=== PATIENT | female | born 1960 | race Caucasian/White ===

== ENCOUNTER 2017-05-19 10:00 | Inpatient (IN) | payer BC ==
[2017-05-19 10:31] VITALS: BMI 25.2
--- NOTE | 2017-05-20 11:02 | HP ---
HISTORY OF PRESENT ILLNESS: The patient is a 57-year-old white female who underwent bilateral total knee replacement approximately 15 months ago. She initially did well, but has noticed progressive problems, primarily with her left knee with pain and sensation of instability and hyperextension. She has had no injury. PAST MEDICAL HISTORY: Please see the old chart. The patient has history of thyroid problems, COPD, depression and acid reflux. She was found to have an asymptomatic UTI on preoperative laboratory studies secondary to Escherichia coli and has been treated with Macrobid. CURRENT MEDICATIONS: Include tramadol, Spiriva and Zetia, and Macrobid ALLERGIES: She is allergic to DARVOCET and PENICILLIN. FAMILY HISTORY: Otherwise unremarkable. SOCIAL HISTORY: Otherwise unremarkable. REVIEW OF SYSTEMS: Otherwise unremarkable. PHYSICAL EXAMINATION: GENERAL: Reveals a healthy female. HEENT: Unremarkable. NECK: Supple. CHEST: Clear. HEART: Regular rate and rhythm. ABDOMEN: Soft and nontender. PELVIC: Deferred. RECTAL: Deferred. BREAST: Deferred. EXTREMITIES: Pertinent findings related to her knees. Examination of her left knee reveals no effusion or erythema. There is normal alignment. Surgical wounds are well healed. Range of motion of the left knee is from -5 degrees of hyperextension to 120 degrees. There is pain with extremes of motion. There is no medial or lateral instability. Neurovascular exam is intact. Examination of the right knee reveals no effusion, normal alignment, no point tenderness. Range of motion is 0-115 degrees. No instability. LABORATORY AND X-RAY FINDINGS: X-rays of both knees reveal good alignment of the total knee components without evidence of loosening or interval change. CBC , sedimentation rate and C-reactive protein are normal, without signs of infection. IMPRESSION: Painful left total knee replacement and possible mid-flexion instability. PLAN: Left tibial liner exchange, possible total knee revision. The nature of the surgery, length of recovery, and potential complications such as infection, loss of motion, incomplete relief, neurovascular injury, thromboembolic phenomena, continued instability, possible transfusion, and need for revision or additional surgery have been discussed in detail. VINCE
[2017-05-21] MEDS ORDERED: Ropivacaine 0.2% HCl/PF 20 ML ONE (06:29)
[2017-05-21] MEDS ORDERED: Midazolam HCl 2 mg/2 ml Vial ONE (06:29)
[2017-05-21] MEDS ORDERED: Fentanyl 100 MCG/2 ML VIAL ONE ×6 (06:29→11:05)
[2017-05-21] MEDS ORDERED: Tranexamic Acid 1,000 MG/100 ML BAG ONE ×2 (06:37→10:49)
[2017-05-21] MEDS ORDERED: Levofloxacin 500 mg/D5W 100 ml Premix Bag ONE (06:37)
[2017-05-21] MEDS ORDERED: Promethazine HCl 25 MG/ML VIAL IM PRN (07:21)
[2017-05-21] MEDS ORDERED: traMADol HCl 50 MG TAB PO PRN ×3 (07:21→11:26)
[2017-05-21] MEDS ORDERED: Ondansetron HCl/PF 4 MG/2 ML Vial IVP PRN (07:21)
[2017-05-21] MEDS ORDERED: Ropivacaine HCl/PF 250 ML in Premix Bag 1 BAG NERVE BLCK SCH (07:21)
[2017-05-21] MEDS ORDERED: Zolpidem Tartrate 5 MG TAB PO PRN ×2 (07:21→11:26)
[2017-05-21] MEDS ORDERED: HYDROcodone/Acetaminophen 5/325 mg Tablet PO PRN (07:21)
[2017-05-21] MEDS ORDERED: Fentanyl 100 MCG/2 ML VIAL IV PRN (07:25)
[2017-05-21] MEDS ORDERED: Tranexamic Acid 1,000 MG in Sodium Chloride 0.9% 100 ML IVPB SCH ×2 (09:00→11:26)
--- NOTE | 2017-05-21 10:27 | OP ---
DATE OF PROCEDURE: 05/21/2017 SURGEON: Jas Glaser M.D. LOAN COLLECTOR: Minh Mancuso PA-C. ANESTHESIA: General plus femoral and sciatic nerve blocks. PREOPERATIVE DIAGNOSIS: Painful unstable left total knee replacement. POSTOPERATIVE DIAGNOSIS: Painful unstable left total knee replacement. PROCEDURE: Revision of tibial component, left total knee replacement with tibial liner exchange with exchange of 9 mm CS Triathlon components with 14 mm CS Triathlon tibial liner. OPERATIVE FINDINGS: Examination under anesthesia revealed approximately 5-10 degrees of hyperextensi on. At exploration, there was mild effusion, but no clinical signs of infection, there was good warren llar tracking. There were no signs of malposition of the implants. There were no signs of loosening . After exchanging the 9 mm liner for a 13 mm, this gave improved stability and no hyperextension. NARRATIVE REPORT: After satisfactory anesthesia was induced in supine position, sequential compressi on device was placed on the non-operative leg throughout the procedure. The left leg was then preppe d and draped in routine sterile fashion. Left leg was elevated, exsanguinated with an Esmarch bandag e, and the tourniquet inflated to 250 mmHg. The previous incision was opened in line with the previo us incision and carried down to subcutaneous tissues. Bleeding points controlled with Bovie cautery. Medial parapatellar arthrotomy was performed. Patella subluxed laterally, slight synovectomy was p erformed for exposure. The above findings were noted. The tibial liner was removed with an osteotom e and all components were visualized and no significant pathology found. The trial reduction with a 13 mm #3 insert gave appropriate size, fit, and stability and no further hyperextension of the knee. The trial was removed and the permanent #3 13 mm CS plastic insert was then snapped into position an d there was again good fit and stability. The wound was copiously irrigated with pulsatile lavage. The medial retinaculum and quadriceps mechanism was closed with interrupted #1 Vicryl and a running # 2 Quill. Subcutaneous tissues were closed with running 0 Quill suture and the skin closed with runni ng subcuticular 3-0 Monoderm and SurgiSeal skin adhesive. A sterile bulky compressive dressing was a pplied and the tourniquet deflated after 38 minutes. The foot promptly pinked up. Sequential compre ssion device was placed on the operated leg and she was awakened and taken to recovery room in stable condition. There were no apparent intraoperative complications. The estimated blood loss was less than 100 mL.
--- NOTE | 2017-05-21 11:08 | RAD ---
LEFT KNEE TWO VIEWS: HISTORY: Left knee surgery. FINDINGS: Left knee prosthesis is in place with soft tissue gas and swelling. No perihardware lucency is evide nt. IMPRESSION: Left knee prosthesis is in good radiographic position. POS: CISCOH
[2017-05-21] MEDS ORDERED: Cepastat Lozenges 1 LOZ PO PRN (11:26)
[2017-05-21] MEDS ORDERED: HYDROcodone/Acetaminophen 10/325 mg Tablet PO PRN ×2 (11:26)
[2017-05-21] MEDS ORDERED: Ondansetron HCl/PF 4 MG/2 ML Vial IM PRN (11:26)
[2017-05-21] MEDS ORDERED: PROVENTIL INHALER 6.7 G (200 INHALATIONS) INH PRN (11:26)
[2017-05-21] MEDS ORDERED: Spiriva 18 MCG CAP (Box of 5 Caps) INH SCH (11:26)
[2017-05-21] MEDS ORDERED: Fentanyl 100 MCG/2 ML VIAL SLOW IVP PRN ×2 (11:26)
[2017-05-21] MEDS ORDERED: Aspirin 325 mg Enteric Coated Tablet PO SCH (11:45)
[2017-05-21] MEDS ORDERED: Ketorolac Tromethamine 30 MG/ML VIAL IVP SCH (12:00)
[2017-05-21] MEDS: Ipratropium Bromide 2.5 ml Neb NEB SCH ×2 (12:20→19:15)
[2017-05-21] MEDS ORDERED: Ropivacaine 0.5% HCl/PF (150 MG/30 ML VIAL) ONE (12:39)
[2017-05-21] MEDS ORDERED: Dexamethasone 20 MG/5 ML VIAL ONE (12:41)
[2017-05-21] MEDS ORDERED: Lidocaine 1% PF 5 ML VIAL ONE (12:41)
[2017-05-21] MEDS ORDERED: diphenhydrAMINE 50 MG/ML VIAL ONE (12:41)
[2017-05-21] MEDS ORDERED: Ondansetron HCl/PF 4 MG/2 ML Vial ONE (12:41)
[2017-05-21] MEDS ORDERED: PROPOFOL 200 MG/20 ML VIAL ONE (12:41)
[2017-05-21] MEDS: Ketorolac Tromethamine 30 MG/ML VIAL IVP SCH ×3 (13:04→23:05)
[2017-05-21] MEDS: HYDROcodone/Acetaminophen 5/325 mg Tablet PO PRN ×2 (16:20→20:21)
[2017-05-21] MEDS: Sodium Chloride 0.9% 1,000 ML IV SCH ×2 (16:33→20:25)
[2017-05-21] MEDS ORDERED: Vancomycin HCl 1 GM in Premix Bag 1 BAG IVPB SCH (18:00)
[2017-05-21] MEDS: Mometasone/Formoterol 120 PUFF INHALER INH SCH (19:14)
[2017-05-21] MEDS: Aspirin 325 mg Enteric Coated Tablet PO SCH (20:33)
[2017-05-21] MEDS ORDERED: Calcium Carbonate + Vit D 1 TAB PO SCH (21:00)
[2017-05-22] MEDS: Ipratropium Bromide 2.5 ml Neb NEB SCH ×2 (01:03→08:19)
[2017-05-22] MEDS: HYDROcodone/Acetaminophen 5/325 mg Tablet PO PRN ×3 (04:07→12:34)
[2017-05-22] MEDS: Ketorolac Tromethamine 30 MG/ML VIAL IVP SCH ×2 (05:46→12:34)
[2017-05-22] MEDS ORDERED: Levothyroxine 150 MCG TAB PO SCH (06:00)
[2017-05-22] MEDS ORDERED: oxyCODONE/Acetaminophen 5 mg/325 mg Tablet PO PRN ×2 (08:03)
[2017-05-22] MEDS: Mometasone/Formoterol 120 PUFF INHALER INH SCH (08:23)
[2017-05-22] MEDS ORDERED: Multivitamin W/ Minerals 1 TAB PO SCH (09:00)
[2017-05-22] MEDS ORDERED: Ezetimibe 10 MG TAB PO SCH (09:00)
[2017-05-22] MEDS ORDERED: Aspirin 81 mg Enteric Coated Tablet PO SCH (09:00)
[2017-05-22] MEDS ORDERED: Nitrofurantoin Monohyd/M-Cryst 100 MG CAP PO SCH (09:00)
[2017-05-22] MEDS ORDERED: Bupropion 150 MG XL TAB PO SCH (09:00)
[2017-05-22] MEDS ORDERED: Senokot S 8.6-50 MG TAB PO SCH (09:00)
[2017-05-22] MEDS: Sodium Chloride 0.9% 1,000 ML IV SCH (10:10)
--- NOTE | 2017-05-22 11:50 | DIS ---
DATE OF ADMISSION: 05/21/2017 DATE OF DISCHARGE: 05/22/2017 HOSPITAL SUMMARY: The patient is a 57-year-old white female who is a little over 1 year status post bilateral total knee replacements. She did well, but developed progressive problems with pain and se nsation of instability in the left knee with hyperextension. She had no signs of infection or loosen ing of the components. She was taken to the operating room on the day of admission where she underwe nt revision of the tibial component with insertion of a thicker tibial liner with change from a 9 mm to a 13 mm tibial liner. This gave improve stability. She was admitted for antibiotics and postoper ative pain control. Presently, she is afebrile and was comfortable. She has been instructed on prog thomas of ambulation with a walker and active range of motion exercises and arrangements were made for o utpatient physical therapy. She was given written wound care instructions and a prescription for Per cocet 5/325 for pain, 90 tablets. She was instructed in the use of aspirin 81 mg b.i.d. for the next 4 weeks and use of support hose for DVT prophylaxis. She was found to have an asymptomatic UTI prio r to admission on preoperative lab secondary to E. Coli, which was Macrodantin and she will finish a 1 week course at home. She will be rechecked in my office in 2-3 weeks or sooner if there are any pr oblems prior to that time. DISCHARGE DIAGNOSES: 1. Painful unstable left total knee replacement. 2. Urinary tract infection secondary to E. coli present prior to admission. 3. History of chronic obstructive pulmonary disease.
[2017-05-22 12:00] VITALS: BP 130/83; TEMP 98.5
[2017-05-22] MEDS: Aspirin 325 mg Enteric Coated Tablet PO SCH (12:49)
== END 2017-05-22 13:40 | disposition home or self-care (01) | DRG 488 ==
LOC: SURG A 05-21 06:04
PROVIDERS: ADMIT Orthopaedic Surgery; ATTEND Orthopaedic Surgery
PROC: 0SPD09Z Removal of Liner from Left Knee Joint, Open Approach (ICD-10-PCS; principal; 2017-05-21)
PROC: 0SUW09Z Supplement Left Knee Joint, Tibial Surface with Liner, Open Approach (ICD-10-PCS; 2017-05-21)
PROC: 3E0T3BZ Introduction of Anesthetic Agent into Peripheral Nerves and Plexi, Percutaneous Approach (ICD-10-PCS; 2017-05-21)
DX: T84.023A Instability of internal left knee prosthesis, initial encounter (principal); N39.0 Urinary tract infection, site not specified; T84.84XA Pain due to internal orthopedic prosthetic devices, implants and grafts, initial encounter; F32.9 Major depressive disorder, single episode, unspecified; J44.9 Chronic obstructive pulmonary disease, unspecified; K21.9 Gastro-esophageal reflux disease without esophagitis; B96.20 Unspecified Escherichia coli [E. coli] as the cause of diseases classified elsewhere; Z88.5 Allergy status to narcotic agent; Z88.0 Allergy status to penicillin; Z96.653 Presence of artificial knee joint, bilateral
CPT/HCPCS: 87070; 87205; 94640; C1776; G8978-GP-CL; G8979-GP-CJ; J1100; J1200; J1885; J1956; J2001; J2250; J2405; J2704; J2795; J3010; J3370; J7050; J7620; J7644

== ENCOUNTER 2017-05-19 10:14 | Outpatient (CLI) | payer BC ==
[2017-05-19 11:49] LABS: Hemoglobin 13.4 g/dL (12.0-16.0); Mean Corpuscular HGB CONC 32.7 g/dL (32.0-36.0); Mean Corpuscular Hemoglobin 33.1 pg (27.0-31.0); Mean Platelet Volume 6.5 fL (7.4-10.4); Platelet Count 278 thou/uL (130-400); RBC Distribution Width 11.6 % (11.5-14.5); Red Blood Cell (RBC) Count 4.03 mill/uL (4.20-5.40); White Blood Cell (WBC) Count 9.2 thou/uL (4.8-10.8)
[2017-05-19 11:59] LABS: INR-International Normal Ratio 0.9; Prothrombin Time 12.4 SEC (12.0-14.7)
[2017-05-19 12:08] LABS: Bacteria/HPF 3+ HPF (None Seen); Bilirubin Negative (Negative); Blood, Urine Negative (Negative); Clarity CLEAR (Clear); Glucose, Urine (Dipstick) Negative (Negative); Hyaline Casts/LPF 0-3 HYALINE CAST LPF (0-3 Hyaline); Leukocyte Trace (Negative); Nitrite Negative (Negative); Pathc Cast-AUWi Flag 0.13 (0-2.49); Protein, Urine (Dipstick) Negative (Neg-Trace); Specific Gravity, Urine 1.023 (1.002-1.036); Squamous Epithelial None Seen HPF (0-3); WBC/HPF None Seen HPF (0-3)
[2017-05-19 12:32] LABS: Anion Gap 12 mmol/L (10-20); BUN (Urea Nitrogen) 15 mg/dL (9.8-20.1); Calc. Creatinine Clearance 0 mL/min (70-130); Calcium 9.4 mg/dL (7.8-10.44); Carbon Dioxide 27 mmol/L (22-29); Chloride 103 mmol/L (98-107); Estimated GFR-MDRD 80; Glucose 89 mg/dL (70-105); Potassium 4.2 mmol/L (3.5-5.1); Sodium 138 mmol/L (136-145)
--- NOTE | 2017-06-13 16:30 | EKG ---
Test Reason : Blood Pressure : / mmHG Vent. Rate : 055 BPM Atrial Rate : 055 BPM P-R Int : 160 ms QRS Dur : 092 ms QT Int : 432 ms P-R-T Axes : 043 069 072 degrees QTc Int : 413 ms Sinus bradycardia Cannot rule out Anterior infarct , age undetermined Abnormal ECG When compared with ECG of 24-APR-2016 11:29, Nonspecific T wave abnormality now evident in Anterior leads Confirmed by DR. Malini SNOW ([id number]) on 06/13/2017 4:29:46 PM Referred By: EMANI Confirmed By:DR. Malini SNOW
== END 2017-05-19 10:15 | disposition home or self-care (01) ==
LOC: LABBT 10:14
PROVIDERS: ATTEND Orthopaedic Surgery
DX: Z01.818 Encounter for other preprocedural examination (principal); T84.84XD Pain due to internal orthopedic prosthetic devices, implants and grafts, subsequent encounter
CPT/HCPCS: 80048; 81001; 85027; 85610; 86850; 86900; 86901; 87077; 87081; 87086; 87186; 93005; 93010

== ENCOUNTER 2017-06-19 09:53 | Outpatient (CLI) | payer BC | END 2017-06-19 09:54 | disposition home or self-care (01) | LOC: CTENTCT 09:53 | PROVIDERS: ATTEND Otolaryngology Plastic Surgery within the Head & Neck | DX: J32.8 Other chronic sinusitis (principal) | CPT/HCPCS: 70486 ==

== ENCOUNTER 2017-09-04 08:56 | Outpatient (CLI) | payer BC ==
[2017-09-04] MEDS ORDERED: ISOVUE-370 76%-LOCM 1 ML ONE (13:37)
== END 2017-09-04 08:57 | disposition home or self-care (01) ==
LOC: BICCT 08:56
PROVIDERS: ATTEND Internal Medicine Gastroenterology
DX: K59.00 Constipation, unspecified (principal); R14.0 Abdominal distension (gaseous); Z90.49 Acquired absence of other specified parts of digestive tract; Z90.710 Acquired absence of both cervix and uterus
CPT/HCPCS: 74177

== ENCOUNTER 2019-05-18 10:02 | Outpatient (CLI) | payer OTHER ==
--- NOTE | 2019-05-18 10:50 | RAD ---
PA AND LATERAL VIEWS CHEST: HISTORY: COPD. FINDINGS: The heart size is normal. The lungs are expanded without lobar consolidation, pneumothoraces, or ple ural effusions seen. Chronic changes of the upper lung sharif and a probable right nodular density a re stable compared to the CT pulmonary angiogram of 03/08/2016. There are degenerative changes in th e spine. IMPRESSION: No acute process. POS: OFF
== END 2019-05-18 10:03 | disposition home or self-care (01) ==
LOC: BICRAD 10:02
PROVIDERS: ATTEND Family Medicine
DX: J44.9 Chronic obstructive pulmonary disease, unspecified (principal)
CPT/HCPCS: 71046

== ENCOUNTER 2021-09-07 10:41 | Inpatient (IN) | payer OTHER ==
[~2021-09-07 10:41] MED LIST: Azithromycin 250 MG TAB PO SCH
[2021-09-07] MEDS ORDERED: Albuterol Sulfate 2.5 mg/0.5 ml Neb ONE ×4 (10:45→11:13)
[2021-09-07] MEDS ORDERED: cefTRIAXone\\ROCEPHIN 1 GM VIAL ONE (11:00)
[2021-09-07] MEDS ORDERED: Azithromycin 500 MG VIAL ONE ×2 (11:00→12:26)
[2021-09-07 11:09] LABS: Actual Bicarbonate (HCO3v) 28 mEq/L (22-28); Analyzer IN Cardio ER; Base Excess -0.6 mEq/L (-2.0 to +3.0); Calcium, Ionized (venous) 1.11 mmol/L (1.16-1.32); Chloride (VBG) 102 mmol/L (98-106); Hemoglobin (Hb) 14.5 g/dL (11.7-16.0); Potassium (VBG) 4.08 mmol/L (3.70-5.30); Sodium 135.1 mmol/L (133-146); pH (venous) 7.27 (7.32-7.43)
[2021-09-07 11:18] LABS: #Basophils 0.1 thou/uL (0.0-0.2); #Eosinphils 1.1 thou/uL (0.0-0.7); #Lymphocytes 5.2 thou/uL (1.20-3.40); #Monocytes 1.2 thou/uL (0.11-0.59); %Basophils 1.1 % (0.0-1.0); %Eosinophils 8.3 % (0.0-10.0); %Lymphocytes 41.3 % (21.0-51.0); %Monocytes 9.2 % (0.0-10.0); Hemoglobin 13.5 g/dL (12.0-16.0); Mean Corpuscular Hemoglobin 35.9 pg (27.0-31.0); Mean Platelet Volume 6.6 fL (7.4-10.4); Platelet Count 268 thou/uL (130-400); Red Blood Cell (RBC) Count 3.76 mill/uL (4.20-5.40); White Blood Cell (WBC) Count 12.6 thou/uL (4.8-10.8)
[2021-09-07 11:23] LABS: INR-International Normal Ratio 0.9; Prothrombin Time 12.1 sec (12.0-14.7)
[2021-09-07 11:24] LABS: PTT 26.9 sec (22.9-36.1)
[2021-09-07 11:27] LABS: ALT (SGPT) 16 U/L (8-55); AST (SGOT) 20 U/L (5-34); Albumin 4.1 g/dL (3.5-5.0); Alkaline Phosphatase 50 U/L (40-110); Anion Gap 13 mmol/L (10-20); BUN (Urea Nitrogen) 15 mg/dL (9.8-20.1); Bilirubin, Total 0.2 mg/dL (0.2-1.2); CK (CPK) 123 U/L (29-168); CRP (Inflammatory) Less than 0.50 mg/dL (= or < 0.5); Calc. Creatinine Clearance 0 mL/min (70-130); Calcium 8.5 mg/dL (7.8-10.44); Carbon Dioxide 22 mmol/L (22-29); Chloride 103 mmol/L (98-107); Globulin 2.3 g/dL (2.4-3.5); Glucose 164 mg/dL (70-105); Potassium 4.2 mmol/L (3.5-5.1); Protein, Total 6.4 g/dL (6.0-8.3); Sodium 134 mmol/L (136-145)
[2021-09-07 12:13] LABS: MDiff Complete? YES; Platelet Morphology Comment Appears Adequate; Polychromasia SLIGHT = 2-3 cells (100X) (0-2/hpf)
[2021-09-07 12:54] LABS: SARS-CoV-2 NAA Rapid Test Not Detected (NotDetected)
[2021-09-07 16:09] VITALS: BMI 24.0
[2021-09-07] MEDS: Nicotine 14 MG PATCH TD SCH (16:39)
[2021-09-08 03:33] LABS: #Lymphocytes 0.5 thou/uL (1.20-3.40); #Monocytes 0.1 thou/uL (0.11-0.59); #Neutrophils 12.5 thou/uL (1.40-6.50); %Basophils 0.1 % (0.0-1.0); %Eosinophils 0.1 % (0.0-10.0); %Monocytes 0.8 % (0.0-10.0); Hemoglobin 13.4 g/dL (12.0-16.0); Mean Corpuscular HGB CONC 33.2 g/dL (32.0-36.0); Mean Corpuscular Hemoglobin 34.4 pg (27.0-31.0); Mean Platelet Volume 6.3 fL (7.4-10.4); Platelet Count 280 thou/uL (130-400); Red Blood Cell (RBC) Count 3.88 mill/uL (4.20-5.40); White Blood Cell (WBC) Count 13.2 thou/uL (4.8-10.8)
[2021-09-08 03:56] LABS: ALT (SGPT) 17 U/L (8-55); AST (SGOT) 23 U/L (5-34); Albumin 3.9 g/dL (3.5-5.0); Alkaline Phosphatase 50 U/L (40-110); Anion Gap 18 mmol/L (10-20); BUN (Urea Nitrogen) 11 mg/dL (9.8-20.1); Bilirubin, Total 0.4 mg/dL (0.2-1.2); Calc. Creatinine Clearance 83 mL/min (70-130); Calcium 8.6 mg/dL (7.8-10.44); Carbon Dioxide 15 mmol/L (22-29); Chloride 105 mmol/L (98-107); Globulin 2.7 g/dL (2.4-3.5); Glucose 159 mg/dL (70-105); Potassium 4.1 mmol/L (3.5-5.1); Protein, Total 6.6 g/dL (6.0-8.3); Sodium 134 mmol/L (136-145)
[2021-09-08] MEDS: Levothyroxine Sodium 25 MCG TAB PO SCH (05:22)
[2021-09-08] MEDS: Levothyroxine Sodium 112 MCG TAB PO SCH (05:22)
[2021-09-08] MEDS: Estradiol 1 MG TAB PO SCH (09:20)
[2021-09-08] MEDS: Bupropion 150 MG XL TAB PO SCH (09:20)
[2021-09-08] MEDS: Ezetimibe 10 MG TAB PO SCH (09:21)
[2021-09-08] MEDS: Azithromycin 250 MG TAB PO SCH (09:21)
[2021-09-08] MEDS: predniSONE 20 MG TAB PO SCH (09:21)
[2021-09-08] MEDS: Citalopram 20 MG TAB PO SCH (09:21)
[2021-09-08] MEDS: Enoxaparin Sodium 40 MG/0.4 ML SYRINGE SC SCH ×2 (09:21→09:25)
[2021-09-08] MEDS: guaiFENesin/DM ER PO SCH ×2 (09:21→20:16)
[2021-09-08] MEDS: Lactated Ringer's 1,000 ML IV SCH (09:25)
[2021-09-08] MEDS: Nicotine 14 MG PATCH TD SCH (11:23)
[2021-09-08] MEDS ORDERED: Cepastat Lozenges 1 LOZ PO PRN (16:09)
[2021-09-08] MEDS: Benzonatate 100 MG CAP PO PRN (16:18)
[2021-09-08] MEDS: Melatonin 3 MG TAB PO SCH ×2 (20:16→20:24)
[2021-09-08] MEDS: Acetaminophen 325 MG TAB PO PRN (20:16)
[2021-09-09] MEDS: Levothyroxine Sodium 25 MCG TAB PO SCH (05:22)
[2021-09-09] MEDS: Levothyroxine Sodium 112 MCG TAB PO SCH (05:22)
[2021-09-09] MEDS: Benzonatate 100 MG CAP PO PRN (05:34)
[2021-09-09] MEDS: Lactated Ringer's 1,000 ML IV SCH (05:35)
[2021-09-09 06:45] LABS: #Eosinphils 0.2 thou/uL (0.0-0.7); #Neutrophils 9.7 thou/uL (1.40-6.50); %Basophils 0.3 % (0.0-1.0); %Eosinophils 1.6 % (0.0-10.0); %Lymphocytes 21.4 % (21.0-51.0); %Monocytes 7.1 % (0.0-10.0); %Neutrophils 69.6 % (42.0-75.0); Hemoglobin 12.8 g/dL (12.0-16.0); Mean Corpuscular HGB CONC 32.8 g/dL (32.0-36.0); Mean Corpuscular Hemoglobin 34.8 pg (27.0-31.0); Mean Platelet Volume 6.2 fL (7.4-10.4); Platelet Count 292 thou/uL (130-400); RBC Distribution Width 12.2 % (11.5-14.5); Red Blood Cell (RBC) Count 3.68 mill/uL (4.20-5.40); White Blood Cell (WBC) Count 13.9 thou/uL (4.8-10.8)
[2021-09-09 07:10] LABS: Anion Gap 13 mmol/L (10-20); BUN (Urea Nitrogen) 13 mg/dL (9.8-20.1); Calc. Creatinine Clearance 86 mL/min (70-130); Calcium 8.5 mg/dL (7.8-10.44); Carbon Dioxide 27 mmol/L (22-29); Chloride 99 mmol/L (98-107); Glucose 98 mg/dL (70-105); Potassium 4.6 mmol/L (3.5-5.1); Sodium 134 mmol/L (136-145)
[2021-09-09] MEDS: Enoxaparin Sodium 40 MG/0.4 ML SYRINGE SC SCH (07:55)
[2021-09-09] MEDS: predniSONE 20 MG TAB PO SCH (07:56)
[2021-09-09] MEDS: Bupropion 150 MG XL TAB PO SCH (07:56)
[2021-09-09] MEDS: Citalopram 20 MG TAB PO SCH (07:56)
[2021-09-09] MEDS: guaiFENesin/DM ER PO SCH ×2 (07:57→20:21)
[2021-09-09] MEDS: Azithromycin 250 MG TAB PO SCH (07:57)
[2021-09-09] MEDS: Ezetimibe 10 MG TAB PO SCH (07:57)
[2021-09-09] MEDS: Benzonatate 100 MG CAP PO SCH ×3 (10:27→19:30)
[2021-09-09] MEDS: Estradiol 1 MG TAB PO SCH (10:27)
[2021-09-09] MEDS: Acetaminophen 325 MG TAB PO PRN (10:30)
[2021-09-09] MEDS: Nicotine 14 MG PATCH TD SCH (11:28)
[2021-09-09] MEDS: Melatonin 3 MG TAB PO SCH (20:21)
[2021-09-10] MEDS: Lactated Ringer's 1,000 ML IV SCH (01:28)
[2021-09-10] MEDS: Levothyroxine Sodium 112 MCG TAB PO SCH (05:34)
[2021-09-10] MEDS: Levothyroxine Sodium 25 MCG TAB PO SCH (05:34)
[2021-09-10 06:16] LABS: #Eosinphils 0.5 thou/uL (0.0-0.7); #Lymphocytes 3.5 thou/uL (1.20-3.40); #Monocytes 1.2 thou/uL (0.11-0.59); %Basophils 0.3 % (0.0-1.0); %Eosinophils 3.8 % (0.0-10.0); %Lymphocytes 28.9 % (21.0-51.0); %Neutrophils 56.9 % (42.0-75.0); Hemoglobin 13.1 g/dL (12.0-16.0); Mean Corpuscular HGB CONC 33.4 g/dL (32.0-36.0); Mean Platelet Volume 6.1 fL (7.4-10.4); Platelet Count 302 thou/uL (130-400); RBC Distribution Width 12.1 % (11.5-14.5); Red Blood Cell (RBC) Count 3.73 mill/uL (4.20-5.40); White Blood Cell (WBC) Count 12.2 thou/uL (4.8-10.8)
[2021-09-10 06:34] LABS: Anion Gap 13 mmol/L (10-20); BUN (Urea Nitrogen) 9 mg/dL (9.8-20.1); Calc. Creatinine Clearance 86 mL/min (70-130); Calcium 8.9 mg/dL (7.8-10.44); Carbon Dioxide 26 mmol/L (22-29); Chloride 104 mmol/L (98-107); Glucose 97 mg/dL (70-105); Potassium 3.8 mmol/L (3.5-5.1); Sodium 139 mmol/L (136-145)
[2021-09-10 08:10] VITALS: BP 138/84; TEMP 98.7
[2021-09-10] MEDS: Enoxaparin Sodium 40 MG/0.4 ML SYRINGE SC SCH (08:26)
[2021-09-10] MEDS: Estradiol 1 MG TAB PO SCH (08:27)
[2021-09-10] MEDS: Benzonatate 100 MG CAP PO SCH ×2 (08:27→14:06)
[2021-09-10] MEDS: Citalopram 20 MG TAB PO SCH (08:28)
[2021-09-10] MEDS: predniSONE 20 MG TAB PO SCH (08:28)
[2021-09-10] MEDS: Azithromycin 250 MG TAB PO SCH (08:28)
[2021-09-10] MEDS: guaiFENesin/DM ER PO SCH (08:28)
[2021-09-10] MEDS: Bupropion 150 MG XL TAB PO SCH (08:28)
[2021-09-10] MEDS: Ezetimibe 10 MG TAB PO SCH (08:28)
[2021-09-10] MEDS ORDERED: Guaifenesin DM 100-10/5 ML UDCUP PO PRN (08:33)
[2021-09-10] MEDS: methylPREDNISolone Acetate 40 mg/ml Vial IM SCH ×2 (11:29→14:20)
[2021-09-10] MEDS: Nicotine 14 MG PATCH TD SCH (14:20)
== END 2021-09-10 17:13 | disposition home or self-care (01) | DRG 189 ==
LOC: ERS 10:41 → ERHOLD 11:45 → IMCU/EMU 15:30 → T4-A 09-08 10:45
PROVIDERS: ADMIT Family Medicine; ATTEND Internal Medicine
PROC: 5A09357 Assistance with Respiratory Ventilation, Less than 24 Consecutive Hours, Continuous Positive Airway Pressure (ICD-10-PCS; principal; 2021-09-07)
DX: J96.01 Acute respiratory failure with hypoxia (principal); J44.1 Chronic obstructive pulmonary disease with (acute) exacerbation; E87.2 Acidosis; Z20.822 Contact with and (suspected) exposure to COVID-19; F17.210 Nicotine dependence, cigarettes, uncomplicated; E78.5 Hyperlipidemia, unspecified; F32.A Depression, unspecified; E89.0 Postprocedural hypothyroidism; Z96.653 Presence of artificial knee joint, bilateral; Z88.0 Allergy status to penicillin; Z88.8 Allergy status to other drugs, medicaments and biological substances; Z99.81 Dependence on supplemental oxygen; Z79.899 Other long term (current) drug therapy; Z79.890 Hormone replacement therapy; Z90.49 Acquired absence of other specified parts of digestive tract; Z90.710 Acquired absence of both cervix and uterus; Z82.49 Family history of ischemic heart disease and other diseases of the circulatory system; Z82.3 Family history of stroke; Z83.6 Family history of other diseases of the respiratory system
CPT/HCPCS: 36415; 71045; 80048; 80053; 82550; 82805; 83605; 83880; 84145; 84484; 85025; 85610; 85730; 86140; 87040; 87804; 93005; 94640; 94660; 94760; J0456; J0696; J1650; J2920; J7120; J7512; J7611; J7620; U0002

== ENCOUNTER 2023-06-02 15:07 | Outpatient (CLI) | payer OTHER | END 2023-06-02 15:08 | disposition home or self-care (01) | LOC: RAD 15:07 | PROVIDERS: ATTEND Student in an Organized Health Care Education/Training Program | DX: R05.1 Acute cough (principal); J98.4 Other disorders of lung | CPT/HCPCS: 71046 ==

== ENCOUNTER 2023-07-25 10:10 | Outpatient (CLI) | payer OTHER | END 2023-07-25 10:11 | disposition home or self-care (01) | LOC: BICRAD 10:10 | PROVIDERS: ATTEND Family Medicine | DX: R91.8 Other nonspecific abnormal finding of lung field (principal) | CPT/HCPCS: 71046 ==